=== PATIENT | female | born 1940 | race Caucasian/White ===

== ENCOUNTER 2017-07-20 08:45 | Inpatient (IN) | payer OTHER ==
[~2017-07-20] VITALS: Ht 152.4 cm; Wt 59.0 kg
[2017-07-20] MEDS ORDERED: GABAPENTIN100 MG PO (09:49)
[2017-07-20] MEDS ORDERED: ATORVASTATIN CA40 MG PO (09:49)
[2017-07-20] MEDS ORDERED: LOSARTAN POTASS25 MG PO (09:49)
[2017-07-20] MEDS ORDERED: GLIPIZIDE XL5 MG PO (09:50)
[2017-07-20] MEDS ORDERED: JANUMET XR 50-1 EACH PO (09:50)
[2017-07-20] MEDS ORDERED: ASA81 MG PO (09:50)
[2017-07-20] MEDS ORDERED: [UNRECOGNIZED DRUG - OTHER] PO (09:51)
== END 2017-07-23 19:26 | disposition home or self-care (01) | DRG 331 ==
LOC: EDSTATUS 08:45 → ADM 08:45 → SURH 07-22 07:00 → O/R 07-22 07:10 → SURG 07-22 07:10 → SURH 07-22 08:45 → SURG 07-22 20:13
PROVIDERS: Colon & Rectal Surgery
PROC: 0JQC0ZZ Repair Pelvic Region Subcutaneous Tissue and Fascia, Open Approach (ICD-10-PCS; 2017-07-22)
PROC: 0DQR0ZZ Repair Anal Sphincter, Open Approach (ICD-10-PCS; 2017-07-22)
PROC: 0DJD8ZZ Inspection of Lower Intestinal Tract, Via Natural or Artificial Opening Endoscopic (ICD-10-PCS; 2017-07-22)
PROC: 0DTP0ZZ Resection of Rectum, Open Approach (ICD-10-PCS; principal; 2017-07-22 07:00)
DX: K62.3 Rectal prolapse (principal); N81.6 Rectocele; R15.9 Full incontinence of feces; I11.9 Hypertensive heart disease without heart failure; E11.9 Type 2 diabetes mellitus without complications; I25.10 Atherosclerotic heart disease of native coronary artery without angina pectoris